=== PATIENT | female | born 1985 | race Caucasian/White ===

== ENCOUNTER 2016-11-07 16:33 | Emergency (ER) | payer BC ==
[~2016-11-07 16:33] MED LIST: DENIES TAKING MEDS; DOXYCYCLINE; LEVOTHYROXIN50 MCG PO; MONODOX100 MG; NO HOME MEDS; ZANTAC 150 PO
== END 2016-11-07 18:55 | disposition home or self-care (01) ==
LOC: ER 16:33
DX: L25.5 Unspecified contact dermatitis due to plants, except food (principal)
CPT/HCPCS: 96372; 99284